=== PATIENT | female | born 1970 | race Hispanic/Latino ===

== ENCOUNTER 2018-12-03 22:12 | Emergency (ER) | payer OTHER ==
[~2018-12-03] VITALS: Ht 152.4 cm; Wt 73.5 kg
--- OUTSIDE RECORDS SUMMARY | 2018-12-03 22:14 | XMS REPORT | Clinical Summary ---
Author Author [facility] Organization [facility] Address Unknown Phone Unavailable Care Team Providers Care Manager Supply Chain Planning Name Role Phone Renae Colo MD PCP Allergies Comments Active Allergy Reactions Severity Noted Date Tramadol 02/09/2016 Medications End Date Status Medication Sig Dispensed Refills Start Date Active VIT/IRON daily. 0 FUMARATE/FA ( ORAL) Active NON FORMULARY Hair, nail 0 and skin vitamins Active blood sugar diagnostic Test once a 100 strip 6 strips (FREESTYLE TEST) day 6 strip test strips Active canagliflozin (INVOKANA) Take 100 mg 30 tablet 3 100 mg tablet by mouth 6 daily. Active glimepiride (AMARYL) 4 MG TAKE 1 90 tablet 0 tabletIndications: Type TABLET(4 MG) 6 II or unspecified type BY MOUTH diabetes mellitus without EVERY MORNING mention of complication, BEFORE not stated as BREAKFAST uncontrolled Active metFORMIN (GLUCOPHAGE) TAKE 1 180 tablet 0 1000 MG TABLET(1000 6 tabletIndications: Type MG) BY MOUTH II or unspecified type TWICE DAILY diabetes mellitus without WITH MEALS mention of complication, not stated as uncontrolled Active Problems Problem Noted Date Herpes zoster 12/27/2015 Type II or unspecified type diabetes mellitus without mention of 12/27/2015 complication, not stated as uncontrolled Hyperlipidemia 12/27/2015 Chronic tonsillitis 12/27/2015 Amenorrhea 11/03/2015 Asthma 11/03/2015 Back pain 11/03/2015 Diabetes mellitus 11/03/2015 Essential hypertension 11/03/2015 Breast pain 11/03/2015 Vaginitis 11/03/2015 Family History Medical History Relation Name Comments Hypertension Maternal Grandfather Diabetes Maternal Grandmother Hypertension Mother Relation Name Status Comments Maternal Grandfather Maternal Grandmother Mother Social History Date Tobacco Use Types Packs/Day Years Used Never Smoker Alcohol Use Drinks/Week oz/Week Comments No Sex Assigned at Date Recorded Not on file Industry Job Start Date Occupation Not on file Not on file Not on file Travel End Travel History Travel Start No recent travel history available. Last Filed Vital Signs Not on file Plan of Treatment Health Maintenance Due Date Last Done Comments DIABETIC RETINAL EYE EXAM 1969 DIABETIC FOOT EXAM 1979 CERVICAL CANCER SCREENING 1990 URINE MICROALBUMIN 11/05/2016 11/06/2015 INFLUENZA VACCINE 03/18/2019 Results Not on fileafter 12/02/2017 Insurance Payer Benefit Subscriber ID Type Phone Address Plan / Group [employer] CIGNA OPEN xxxxxxxxx HMO ACCESS/NET WORK Advance Directives Patient has advance care planning documents on file. For more information, diomedes aranda contact: Travis Vick [address] [place] [address]
[2018-12-03 22:50] VITALS: BP 150/77
== END 2018-12-03 22:58 | disposition home or self-care (01) ==
LOC: ER 22:12
DX: G51.0 Bell's palsy (principal)
CPT/HCPCS: 99282

== ENCOUNTER 2018-12-07 18:54 | Emergency (ER) | payer OTHER ==
[~2018-12-07] VITALS: Ht 152.4 cm; Wt 73.5 kg
--- NOTE | 2018-12-07 21:51 | Diagnostic Imaging Report ---
EXAMINATION: Head and face CT without contrast. HISTORY: Head, neck and ear pain, headache, right jaw/ear pain for the last 3 days COMPARISON: None. TECHNIQUE: Multidetector axial images were obtained without contrast from the foramen magnum to the vertex and over the face. The images were reconstructed using brain and bone algorithms. Thin section brain images were reformatted into coronal and sagittal planes. Intravenous contrast: None. Dose modulation, iterative reconstruction, and/or weight based adjustment of the mA/kV was utilized to reduce the radiation dose to as low as reasonably achievable. Head CT findings: Skull: No lytic or blastic lesions. No fractures. Parenchyma: Normal. No mass, hemorrhage or CT evidence of acute vascular insult. Brain volume: Normal for age. Ventricles: No hydrocephalus or displacement. Arteries: No density suggestive of thrombus. Dural sinuses: No abnormal density. Extra-axial spaces: No abnormal density. Foramen magnum: No mass, Chiari malformation, or basilar invagination. Sella: No obvious mass. Paranasal/mastoid sinuses: Imaged portions unremarkable. Face CT findings: Bones: Unremarkable. Facial soft tissues: Unremarkable. Orbits contents: Unremarkable. Paranasal sinuses and drainage pathways: Partial opacification of left posterior ethmoidal air cells, otherwise clear.. Nasal septum and nasal cavities: Midline. Anatomic variations: No significant anatomic variations. Teeth: Large periapical lucency with palatal and buccal cortical erosion about the roots of tooth #3 (right maxillary first molar). Minimal periapical lucency also seen in the left first premolar (tooth #15) IMPRESSION: Head CT: No intracranial abnormalities. Facial CT: Prominent periapical lucency about tooth #3 (right maxillary first molar) with cortical erosion, no discrete fluid collections at this time.. Signed by: Dr. Claudia Thomas M.D. on 12/07/2018 9:47 PM
[2018-12-08] MEDS ORDERED: AMOXICILLIN250 MG PO (01:12)
[2018-12-08] MEDS ORDERED: TETRACAINE HCL 0.5% OPTH SOLN 4 ML BTL ONE (01:38)
== END 2018-12-08 01:45 | disposition home or self-care (01) ==
LOC: ER 18:54
DX: H66.001 Acute suppurative otitis media without spontaneous rupture of ear drum, right ear (principal); K02.9 Dental caries, unspecified
CPT/HCPCS: 70450; 70486; 99283